=== PATIENT | female | born 1985 | race Caucasian/White ===

== ENCOUNTER 2019-09-06 12:37 | Outpatient (CLI) | payer BC, SELFPAY ==
--- NOTE | ~2019-09-06 | US_ITS ---
EXAMINATION: US OB follow up DATE: 09/06/2019 13:48 INDICATION: Evaluate growth and fluid TECHNIQUE: Real-time transabdominal obstetric ultrasound. FINDINGS: No prior studies for comparison. There is a single living fetus in vertex presentation. The placenta is anterior without placenta pre via. cardiac activity and movement is noted with a heart rate of 152 beats per minute. T he amniotic fluid volume is normal. LYNNETTE measures 9.2 cm. The following biometric data were obtained: BPD: 88mm corresponds to gestational age 35 weeks 3 days. Head circumference: 325mm corresponds to gestational age 36 weeks 6 days. Abdominal circumference: 330mm corresponds to gestational age 37 weeks 0 days. Femur length: 76mm corresponds to gestational age 38 weeks 6 days. Estimated weight: 3149grams +/- 472grams.] IMPRESSION: 1. Single living intrauterine in vertex presentation with an estimated gestational age of 37 weeks 0 days by current ultrasound. EDC is 09/27/2019. 2. Normal LYNNETTE measures 9.2 cm.. Reviewed, dictated and finalized at location A. IMPRESSION: 1. Single living intrauterine in vertex presentation with an estimat ed gestational age of 37 weeks 0 days by current ultrasound. EDC is 09/27/2019. 2. Normal LYNNETTE measures 9.2 cm..
== END 2019-09-06 12:38 | disposition home or self-care (01) ==
PROVIDERS: PCP Physician Assistant; Visit Provider Obstetrics & Gynecology
DX: Z34.91 Encounter for supervision of normal pregnancy, unspecified, first trimester (principal); Z3A.37 37 weeks gestation of pregnancy
CPT/HCPCS: 76816

== ENCOUNTER 2019-09-20 21:52 | Inpatient (IN) | payer BC, SELFPAY ==
[2019-09-20 22:10] VITALS: TEMP 36.6
[2019-09-20 22:20] VITALS: BP 117/80; PULSE 71
[2019-09-20 22:48] VITALS: BMI 26.2
--- NOTE | 2019-09-20 22:49 | LDADM ---
This patient, Pauline Clancy, was admitted to Labor/Delivery/Recovery 104 on 09/20/19 at 21:52. Plans for labor, pain management and were discussed with patient. Patient/family oriented to hospital policies and general routines including ID bracelet, bed and alarms, visiting hours, pain management, procedures, bathroom and other care routines, personal items, smoking policy, room service/diet and guest tray routines, infant security routines, and visiting hours. Patient/Family are encouraged to report perceived risks to care and to ask questions if they do not understand what they are told or what they should do. See OBIX for further documentation.
[2019-09-20 23:01] LABS: Basophils Percent Auto 0.2 % (0.2-1.2); Eosinophils Percent Auto 0.2 % (0-4.4); Hematocrit 38.4 % (37.0-47.0); Hemoglobin 13.2 g/dL (12.0-15.0); Immature Granulocyte Absolute 0.17 K/mm3 (0.00-0.031); Lymphocytes Absolute Auto 2.32 K/mm3 (0.9-3.2); Lymphocytes Percent Auto 13.7 % (18.3-44.2); Mean Corpuscular HGB Conc 34.4 g/dl (32-36); Mean Corpuscular Hemoglobin 34.2 pg (26-34); Mean Corpuscular Volume 99.5 fl (80-100); Mean Platelet Volume 10.4 fl (7.4-10.4); Monocytes Absolute Auto 0.9 K/mm3 (0.1-0.6); Monocytes Percent Auto 5.4 % (2.6-8.5); Neutrophils Absolute Auto 13.5 K/mm3 (1.3-6.7); Neutrophils Percent Auto 79.5 % (45.5-73.1); Platelet Count Result 165 k/mm3 (150-375); Red Blood Count 3.86 M/mm3 (4.2-5.4); Red Cell Distribution Width 12.9 % (11.5-14.5)
[2019-09-20 23:36] VITALS: BP 124/90; PULSE 113; TEMP 37.6
[2019-09-21] VITALS (125 sets, daily range): BP systolic 45–179; BP diastolic 12–163; PULSE 46–268; RESP 16–18; TEMP 36.9–37.4; O2SAT 91–100
[2019-09-21 00:05] LABS: HIV 1/2 Ab P24 Ag Result Negative (Negative)
[2019-09-21] MEDS: LACTATED RINGERS 1,000 ML 125 ML IV CONT ×4 (00:24→04:12)
--- NOTE | 2019-09-21 00:54 | WPDANESEPP ---
Anes - Eval Pre Procedure Procedure: LABOR EPIDURAL Date/Time: 09/21/19 00:54 Surgeon: claudia Preop Diagnosis: Abd pain with contractions Pre Op Diagnosis: Contractions/Leaking Patient Data Age: 34 Gender: F Height: 5 ft 7 in Weight: 76 kg Last Vital Signs Temp 99.6 F 09/20/19 23:36 Pulse 113 H 09/20/19 23:36 BP 124/90 09/20/19 23:36 Allergies Allergy/AdvReac Type Severity Reaction Status Date / Time No Known Allergies Allergy Verified 09/03/19 14:41 Home Medications Medication Instructions Recorded Confirmed Type PNV cmb#95-ferrous fumarate-FA 1 tablet PO DAILY 09/03/19 09/03/19 History [] acyclovir 400 mg PO DAILY 09/03/19 09/03/19 History cetirizine [Zyrtec] 10 mg PO DAILY 09/03/19 09/03/19 History Laboratory Tests 09/20/19 09/20/19 09/20/19 22:53 22:53 22:53 WBC 17.0 K/mm3 H K/mm3 (4.5-10.0) RBC 3.86 M/mm3 L M/mm3 (4.2-5.4) Hgb 13.2 g/dL g/dL (12.0-15.0) Hct 38.4 % % (37.0-47.0) MCV 99.5 fl fl (80-100) MCH 34.2 pg H pg (26-34) MCHC 34.4 g/dl g/dl (32-36) RDW 12.9 % % (11.5-14.5) Plt Count 165 k/mm3 k/mm3 (150-375) MPV 10.4 fl fl (7.4-10.4) Immature Gran % (Auto) 1.0 % H % (0-0.5) Neut % (Auto) 79.5 % H % (45.5-73.1) Lymph % (Auto) 13.7 % L % (18.3-44.2) Mcduffie % (Auto) 5.4 % % (2.6-8.5) Eos % (Auto) 0.2 % % (0-4.4) Baso % (Auto) 0.2 % % (0.2-1.2) Lymph # (Auto) 2.32 K/mm3 K/mm3 (0.9-3.2) [place]duffie # (Auto) 0.9 K/mm3 H K/mm3 (0.1-0.6) Eos # (Auto) 0.0 K/mm3 K/mm3 (0-0.3) Baso # (Auto) 0.0 K/mm3 K/mm3 (0.0-0.1) Abs Immat Gran (auto) 0.17 K/mm3 H K/mm3 (0.00-0.031) Absolute Neuts (auto) 13.5 K/mm3 H K/mm3 (1.3-6.7) Absolute Nucleated RBC 0.0 K/mm3 K/mm3 (0.0-0.012) Nucleated RBC % 0.0 % % (0.0-0.2) RPR Pending HIV 1&2 Ab/P24 Ag 4thGn Negative (Negative) Blood Type Antibody Screen 09/20/19 22:53 WBC RBC Hgb Hct MCV MCH MCHC RDW Plt Count MPV Immature Gran % (Auto) Neut % (Auto) Lymph % (Auto) Mcduffie % (Auto) Eos % (Auto) Baso % (Auto) Lymph # (Auto) Mcduffie # (Auto) Eos # (Auto) Baso # (Auto) Abs Immat Gran (auto) Absolute Neuts (auto) Absolute Nucleated RBC Nucleated RBC % RPR HIV 1&2 Ab/P24 Ag 4thGn Blood Type A Positive Antibody Screen Negative Patient hx anesthesia problems: none Family hx anesthesia problems: none [facility] Past Medical History Medical History and not yet delivered Family History Family History Father High cholesterol Social History Social History Smoking status: Never smoker Substance use: never Spiritual care concerns: No Exam Day of Procedure 09/21/19 00:54
[2019-09-21] MEDS: ONDANSETRON INJ 4 MG/2 ML VIAL IV PUSH (02:23)
[2019-09-21] MEDS: OXYTOCIN 30 UNITS/NS 500 ML 30 UNITS/500 ML BAG 999 UNITS IV CONT (05:53)
--- NOTE | 2019-09-21 06:05 | WPDHPUPDATE1 ---
History and Physical Update Update Date/Time: 09/21/19 06:05 History and Physical has been reviewed, including an updated exam of the patient. There are NO changes in the patient's condition. Risks, benefits, and alternatives have been discussed and questions answered. Patient agrees to proceed with procedure.
--- NOTE | 2019-09-21 06:05 | WPDOBADMIT ---
Obstetrics - Admit Note Admission Note: record reviewed. No pertinent additions to the history and/or any subsequent changes in the physical findings that are not consistent with the expected course of the were found. Additions to the history and/or subsequent changes in the physical findings follow. None.
--- NOTE | 2019-09-21 06:06 | PM.OBPRVD ---
OB - Delivery Note Procedure Delivery date: 09/21/19 Route of delivery: Laceration description: Perineal - 1st Degree Delivery repair: chromic Specimen: Yes (placenta) Estimated blood loss (mL): 200 Anesthesia type: Epidural Disposition: floor Narrative: Patient prepped and draped in usual manner for this procedure. Maternal expulsive efforts delivered vertex which was suctioned of naso and oropharynx. Further effort delivered the rest of the baby without difficulty. Cord was clamped cut baby was passed off the operative field and placenta delivered spontaneously. Cervix vagina and vulva inspected midline first-degree laceration was noted and repaired using 2 0 chromic in a running interlocking manner to approximate the vaginal tissue deep tissue and the subcuticular layer on the perineum. At this point seizure was considered terminated. Immediate postoperative condition mother baby were both excellent. [place] [facility] Weeks of gestation at delivery: 39 gender: Female Weight (pounds): 7 Weight (ounces): 13 score one minute: 9 score five minutes: 9
[2019-09-21] MEDS: OXYTOCIN 30 UNITS/NS 500 ML 30 UNITS/500 ML BAG 125 UNITS IV CONT (06:27)
[2019-09-21] MEDS: BENZOCAINE 20% AER SPR (*SP) 56 GM CAN 1 SPRAY TOPICAL (08:23)
[2019-09-21] MEDS: WITCH HAZEL 40 PADS 1 PAD TOPICAL (08:23)
--- NOTE | 2019-09-21 09:20 | PC.NURSE ---
Patient transferred to post room #282 via wheelchair from labor and delivery. Support person present. Oriented to unit, room, information board, rooming in, admission packet and security measures. Patient verbalizes understanding.
--- NOTE | 2019-09-21 09:50 | PC.NURSE ---
Mother called out for assist with feeding, reporting eagerly fed for first feeding. Reviewed infant feeding cues, frequencies, duration of feedings, feeding elimination flow sheet, and signs of adequate intake. Demonstrated stimulation techniques to wake for feeding. Mother is attempting latch with cradle. Assisted with to breast. Reviewed positioning/alignment in cross cradle, holding breast in U hold and guided asymmetrical latch on. Discussed rational for each. Infant was able to latch correctly within a few attempts. Infant nursed eagerly, with steady draws and frequent swallowing noted. Reviewed signs of a correct latch, effective nursing and suck swallow ratio. Infant was able to maintain latch without discomfort to mother. Nipple care reviewed. Suggested mother stimulate and continue to hold breast during feeding, to keep infant awake and nursing effectively for increased intake and maintaining deep latch. Demonstrated how to adjust latch more deeply while feeding. Instructed mother to call out for RN assistance if she is unable to latch for feeding or she has discomfort with nursing. Instructed feeding should be initiated three hours from start of last feeding or if feeding cues are noted before. Mother voiced understanding of information shared.
[2019-09-21 11:42] LABS: Rapid Plasma Reagin Non-Reactive (NonReactive)
[2019-09-21] MEDS: IBUPROFEN 600 MG TABLET PO ×2 (12:24→22:25)
[2019-09-21] MEDS: LORATADINE 10 MG TABLET PO (12:25)
[2019-09-21] MEDS: MULTIVIT/MIN/PREN/FOL AC/IRON TABLET 1 TAB PO (12:25)
[2019-09-21] MEDS: DOCUSATE SODIUM 100 MG CAPSULE PO (17:52)
[2019-09-22 05:20] LABS: Hematocrit 32.8 % (37.0-47.0)
[2019-09-22 07:45] VITALS: BP 93/58; PULSE 72; RESP 18; TEMP 36.8; O2SAT 99
--- NOTE | 2019-09-22 09:01 | WPDANLDPN2 ---
Anes-Prog Note L&D Date/Time: 09/22/19 09:01 Comfortable throughout: labor and delivery Neuraxial method: epidural Epidural/Spinal procedure site: clean & non-tender Neuro status: Neuro function grossly intact. Cardiovascular status: normal Respiratory status: normal Airway patency: baseline Mental status: baseline Post-Op hydration status: normal Vital Signs: Last Vital Signs Temp 37.1 C 09/21/19 21:14 Pulse 85 09/21/19 21:14 Resp 16 09/21/19 21:14 BP 100/67 09/21/19 21:14 Pulse Ox 98 09/21/19 21:14 I/O: Intake & Output 09/21/19 09/22/19 09/22/19 23:59 07:59 15:59 Intake Total 240 Balance 240 Post-procedural complaints: none Patient feedback: Patient satisfied with anesthetic care.
[2019-09-22] MEDS: DOCUSATE SODIUM 100 MG CAPSULE PO ×2 (09:51→16:10)
[2019-09-22] MEDS: MULTIVIT/MIN/PREN/FOL AC/IRON TABLET 1 TAB PO (09:51)
[2019-09-22] MEDS: IBUPROFEN 600 MG TABLET PO ×2 (09:51→16:10)
[2019-09-22] MEDS: LANOLIN (LANSINOH) 7.5 GM CREAM 1 APPLIC TOPICAL (09:56)
--- NOTE | 2019-09-22 12:05 | PC.NURSE ---
Mother is able to independently latch infant with appropriate positioning/alignment. She denies any nipple discomfort, is feeding as required and waking to feed if needed. has had at least 8 effective feedings in the past 24 hours, and is currently meeting outcomes for weight, output, jaundice and feeding frequencies. Mother states she feels confident to continue effective at home. Reviewed transition to breast milk, signs of adequate intake, and engorgement/relief. Instructed to call ICP if intake/output less than required. Reviewed regular medications mother is taking. Information provided per Renetta. Reviewed community resources on the [facility] website and in the Mom/Baby guide. Information on outpatient services provided. Mother has no further questions at this time.
--- NOTE | 2019-09-22 12:10 | PM.OBDSVD ---
OB - DS: Summary OB Procedures : None OB Procedures Intrapartum: Spontaneous Vag Delivery OB Procedures: : None Time Spent with Patient Time attestation: Total time spent providing and/or coordinating discharge services: DS: Data Data Completed and Pending Pending studies at discharge: Pending at discharge 09/20/19 05:53 Surgical [PTH] Routine Labs on day of discharge: Labs from last 24 hours 09/22/19 03:53 Hgb 11.0 L Hct 32.8 L Discharge Plan Discharge Discharging Clinician: Marcus Pittman Patient Disposition: Home, Self-Care Activity: as tolerated Diet: as tolerated Patient Instructions: Antibiotic Form Stand Alone Forms: General Discharge Information Follow-up/Referrals: Marcus Pittman MD [Physician] - 3 Weeks Discharge Medications: New hydrocodone-acetaminophen 5-325 mg Tablet 1 tab PO Q3H PRN (Reason: Moderate Pain (4-6)) Qty: 12 RF: 0 ibuprofen 600 mg Tablet 600 mg PO Q6H PRN (Reason: Cramping) Qty: 30 RF: 0 Continued cetirizine [Zyrtec] 10 mg Tablet 10 mg PO DAILY RF: 0 acyclovir 400 mg Tablet 400 mg PO DAILY RF: 0 PNV cmb#95-ferrous fumarate-FA [] 28 mg iron- 800 mcg Tablet 1 tablet PO DAILY RF: 0 Date of admission: 09/20/19 21:52 Primary Care Provider: Obed,Becky Admitting Provider: Marcus Pittman Attending physician on admission: Marcus Pittman
[2019-09-24 10:19] VITALS: BP 109/71; PULSE 87; RESP 22
== END 2019-09-22 17:10 | disposition home or self-care (01) | DRG 807 ==
LOC: ANHLDR 22:45 → ANHOB2 09-21 09:22
PROVIDERS: Admitting Provider Obstetrics & Gynecology; PCP Physician Assistant; Visit Provider Obstetrics & Gynecology
DX: O98.52 Other viral diseases complicating childbirth (principal); Z37.0 Single live birth; Z3A.39 39 weeks gestation of pregnancy; B00.9 Herpesviral infection, unspecified; O70.0 First degree perineal laceration during delivery; O36.8330 Maternal care for abnormalities of the fetal heart rate or rhythm, third trimester, not applicable or unspecified
CPT/HCPCS: 36415; 84112; 85014; 85018; 85025; 86592; 86703; 86850; 86900; 86901; 88307; A9270; G0432; J2405; J2590; J2795; J7120

== ENCOUNTER 2020-09-10 17:44 | Emergency (ER) | payer BC, SELFPAY ==
--- NOTE | ~2020-09-10 | CT_ITS ---
EXAMINATION: CT abdomen pelvis w con DATE: 09/10/2020 19:12 INDICATION: Right lower quadrant abdominal pain. Nausea and vomiting. TECHNIQUE: Computed tomography (CT) of the abdomen and pelvis was performed with 100 mL Omnipaque 350 intravenous contrast. Automated exposure control and iterative reconstruction technique were employe d. The dose-length product was 250.53 mGy-cm. COMPARISON: None. FINDINGS: The visualized portions of the lung bases demonstrate minimal atelectasis. No pleural effus ion. The heart size is normal. No pericardial effusion. There is a 6 mm cyst in the liver. The gallbl adder, spleen, pancreas, adrenal glands, and kidneys are normal. There is an intrauterine device in a bnormal position where one prong extends most of the way through the myometrium. There are no dilated loops of bowel. The visualized portion of the appendix is normal. There are no pathologically enlarg ed lymph nodes. There is no free intraperitoneal fluid. There are chronic bilateral L5 pars defects. There is 3 mm anterolisthesis of L5 on S1. There is thoracolumbar levoscoliosis. IMPRESSION: 1. Intrauterine device in abnormal position where one prong extends most of the way through the myome trium. Reviewed, dictated and finalized at location A. IMPRESSION: 1. Intrauterine device in abnormal position where one prong extends most of the way through the myometrium.
[2020-09-10 17:48] VITALS: BP 119/77; PULSE 119; RESP 20; TEMP 37.1; O2SAT 99
[2020-09-10 18:00] LABS: Hematocrit 42.5 % (37.0-47.0); Hemoglobin 14.1 g/dL (12.0-15.0); Mean Corpuscular HGB Conc 33.2 g/dl (32-36); Mean Corpuscular Hemoglobin 33.1 pg (26-34); Mean Corpuscular Volume 99.8 fl (80-100); Mean Platelet Volume 10.5 fl (7.4-10.4); Platelet Count Result 177 k/mm3 (150-375); Red Blood Count 4.26 M/mm3 (4.2-5.4); Red Cell Distribution Width 12.1 % (11.5-14.5); White Blood Count 18.4 K/mm3 (4.5-10.0)
[2020-09-10 18:10] LABS: Alanine Aminotransferase 16 U/L (4-35); Albumin Level 4.7 g/dL (3.5-5.1); Alkaline Phosphatase 43 U/L (38-126); Anion Gap 7 mmol/L (8-16); Aspartate Amino Transferase 29 U/L (14-36); Bilirubin,Total 1.2 mg/dL (0.2-1.3); Blood Urea Nitrogen 10 mg/dL (7-17); Calcium 10.2 mg/dL (8.4-10.2); Carbon Dioxide 25 mmol/L (22-30); Chloride 105 mmol/L (98-107); Estimated CRCL calculation 84 ml/min; Estimated Glomerular Filt Rate > 60; Glucose 115 mg/dL (65-105); Lipase 60 U/L (23-300); Potassium 3.5 mmol/L (3.4-5.0); Sodium 137 mmol/L (137-145)
[2020-09-10 18:24] LABS: Band Neutrophils Percent 5 % (0-6); Lymphocytes Absolute Manual 0.55 K/mm3 (1.1-4.5); Monocytes Absolute Manual 0.36 K/mm3 (0.1-0.90); Monocytes Percent Manual 2 % (3-9); Neutrophils Absolute Manual 17.48 K/mm3 (1.7-7.2); Neutrophils Percent Manual 90 % (46-73); Platelet Estimate Adequate (Adequate); Total Cells Counted 100
--- NOTE | 2020-09-10 18:36 | ED.ABDPAIN ---
HPI - Abdominal Pain General Chief Complaint: Abdominal Pain Stated Complaint: ABD Pain Time Seen by Provider: 09/10/20 18:21 Source: patient Mode of arrival: ambulatory Limitations: no limitations History of Present Illness HPI narrative: This is a 35-year-old female that presents the emergency department for abdominal pain since this morning. Reports it is in her mid abdomen. Associated with nausea. It has been constant since onset. Also reports a fever today. Denies vomiting, dysuria, or hematuria. Related Data Home Medications Medication Instructions Recorded Confirmed acyclovir 400 mg PO DAILY 09/03/19 09/03/19 cetirizine [Zyrtec] 10 mg PO DAILY 09/03/19 09/03/19 Allergies Allergy/AdvReac Type Severity Reaction Status Date / Time No Known Allergies Allergy Verified 09/10/20 17:50 Review of Systems Review of Systems: Narrative: CONSTITUTIONAL: Reports fever GASTROINTESTINAL: Reports abdominal pain, nausea. Denies vomiting GENITOURINARY: Denies dysuria or hematuria. All systems reviewed & are unremarkable except as noted in HPI and below PMFSH Past Medical History Medical History (Updated 09/10/20 @ 19:41 by Ryann Gomez PA-C) History of seasonal allergies Family History Family History Father High cholesterol Social History Social History Smoking status: Never smoker Substance use: never Spiritual care concerns: No Exam Narrative: Exam Narrative: GENERAL: Well-appearing, well-nourished, and in no acute distress. HEAD: Normocephalic, atraumatic. EYES: EOMI. CHEST: Clear to auscultation. No respiratory distress. No wheezes rales or rhonchi HEART: Regular rate and rhythm. No murmur heard. Normal peripheral pulses. ABDOMEN: Soft, nondistended, normal active bowel sounds. Tender to palpation in the right lower quadrant, without guarding. No CVA tenderness EXTREMITIES: Normal range of motion. No edema. SKIN: Warm, dry, no rash. NEURO: No focal deficits. Alert and oriented x3. PSYCH: Normal mood and affect Course Vital Signs Vital signs: Vital Signs Temperature 98.8 F 09/10/20 17:48 Pulse Rate 119 H 09/10/20 17:48 Respiratory Rate 20 09/10/20 17:48 Blood Pressure 119/77 09/10/20 17:48 Pulse Oximetry 99 09/10/20 17:48 Temperature 98.8 F 09/10/20 17:48 Pulse Rate 119 H 09/10/20 17:48 Respiratory Rate 20 09/10/20 17:48 Blood Pressure 119/77 09/10/20 17:48 Pulse Oximetry 99 09/10/20 17:48 MDM - Abdominal Pain MDM Narrative Medical decision making narrative: Patient presents to the emergency department for abdominal pain and nausea. She is afebrile and nontoxic-appearing. Tachycardic upon arrival, this normalized with IV fluid administration. CBC does show leukocytosis to 18.4. Metabolic panel and lipase without concerning findings. UA with 4-6 white blood cells and 1+ leuk esterase, also with squamous epithelial cells. Patient denies any urinary symptoms. Suspect this was a contaminated catch. Bedside test is negative. CT scan abdomen and pelvis shows intrauterine device in abnormal position where one prong extends most the way through the myometrium. Spoke with Dr. Pickering about patient work-up who reports patient should call in the morning for follow-up for removal of IUD. Patient denies any abnormal discharge, new sexual partners or concern for STDs. Patient is stable and felt appropriate for further outpatient evaluation. She was given warnings to return to the ER Lab Data Attestation: I reviewed the patient's lab results. Result diagrams: 09/10/20 17:53 09/10/20 17:53 Labs: Lab Results 09/10/20 09/10/20 09/10/20 Range/Units 17:53 17:53 18:41 WBC 18.4 H (4.5-10.0) K/mm3 RBC 4.26 (4.2-5.4) M/mm3 Hgb 14.1 D (12.0-15.0) g/dL Hct 42.5 (37.0-47.0) % MCV 99.8 (80-100)
[2020-09-10] MEDS: ONDANSETRON INJ 4 MG/2 ML VIAL IV PUSH (18:43)
[2020-09-10] MEDS: MORPHINE SULFATE (*CRX) 4 MG/ML INJ IV PUSH (18:43)
[2020-09-10] MEDS: SODIUM CHLORIDE 0.9% IV 1,000 ML 999 ML IV CONT (18:43)
[2020-09-10 18:51] LABS: Add Urine Microscopic? YES; Appearance Urine Cloudy (Clear); Bilirubin Urine Negative (Negative); Blood Urine Negative (Negative); Color Urine Yellow (Yellow); Glucose Urine UA Negative (Negative); Ketones Urine 1+ mg/dL (Negative); Leukocyte Esterase Ur 1+ LEU/UL (Negative); Mucus Urine Rare /lpf; Nitrate Urine Negative (Negative); Protein Urine 1+ mg/dL (Negative); Specific Grav Ur 1.029 (1.001-1.035); Squamous Epithelial Cell Urine Occasional /hpf (Few)
[2020-09-10 19:54] VITALS: BP 112/65; PULSE 79; RESP 14; O2SAT 99
== END 2020-09-10 19:48 | disposition home or self-care (01) ==
PROVIDERS: Physician Assistant; Emergency Provider Emergency Medicine; PCP Physician Assistant
DX: T83.32XA Displacement of intrauterine contraceptive device, initial encounter (principal)
CPT/HCPCS: 36415; 74177; 80053; 81001; 81025; 83690; 85025; 96361; 96365; 96375; 99284; J0131; J2270; J2405; J7030; Q9967

== ENCOUNTER 2020-09-12 14:45 | Emergency (ER) | payer BC, SELFPAY ==
--- NOTE | ~2020-09-12 | US_ITS ---
EXAMINATION: US pelvic complete w TV EXAM DATE: 09/12/2020 20:20 INDICATION: right adnexal pain , tenderness. TECHNIQUE: Pelvic transabdominal and transvaginal sonogram was performed. There are multiple graysca le and Doppler images available for interpretation. Correlation is made to CT abdomen pelvis 09/10/2020 , right upper quadrant sonogram 09/12/2020. FINDINGS: Uterus measures 6.8 x 4.5 x 7.8 cm, is retroverted and morphologically normal. Endometria l stripe measures 6 mm, within normal limits. There is no free pelvic fluid. Right adnexa: The ovary measures 3.5 x 2.3 x 2.4 cm and is morphologically normal. Ovarian vascular f low confirmed. Left adnexa: The ovary measures 4.5 x 1.8 x 1.6 cm and is morphologically normal. Ovarian vascular fl ow confirmed. IMPRESSION: 1. Unremarkable pelvic ultrasound exam. Reviewed, dictated and finalized at location A.
--- NOTE | ~2020-09-12 | CT_ITS ---
EXAMINATION: CT abdomen pelvis w con EXAM DATE: 09/12/2020 21:34 INDICATION: Right lower quadrant pain. TECHNIQUE: Spiral CT of the abdomen and pelvis was performed following intravenous injection of 100 m L Omnipaque 350. Axial, coronal and sagittal images of the abdomen and pelvis were reviewed. The do se-length product (DLP) for this examination was 230.32 mGy-cm. The exposure was tailored according to patient size (auto mA exposure control), and iterative reconstruction (ASIR) was used as additiona l dose reduction technique. Comparison is made to prior examination from 09/10/2020. FINDINGS: The liver, spleen, adrenal glands and pancreas are unremarkable. Gallbladder is unremarkab le. No biliary obstruction. Portal and splenic veins are patent. Kidneys enhance symmetrically. T here is no hydronephrosis. The uterus is retroverted and morphologically normal. The bladder is u nremarkable. There is no retroperitoneal or pelvic lymphadenopathy. Mild nonspecific hazy omental a nd mesenteric fat, but with the mesenteric vasculature enhances normally. There is moderate amount of colonic gas. Probable identification of an unremarkable appendix. The sto mach and small bowel are unremarkable. No free intraperitoneal gas. The heart is normal in size. There are no pericardial or pleural effusions. Bibasilar subsegmental atelectasis. Mild thoracolum bar levoscoliosis. IMPRESSION: 1. Interval increase in amount of colonic gas to the rectum. No obstruction. 2. Mild nonspecific intra-abdominal fat stranding. 3. Interval removal of IUD. 4. Probable identification normal appendix. Reviewed, dictated and finalized at location A.
--- NOTE | ~2020-09-12 | US_ITS ---
EXAMINATION: US right upper quadrant EXAM DATE: 09/12/2020 17:03 INDICATION: Right upper quadrant abdominal pain. TECHNIQUE: Multiple grayscale and Doppler images of the abdomen right upper quadrant were obtained (b y a technologist who performed the scan) and subsequently reviewed. Correlation is made to CT abdomen pelvis 09/10/2020. FINDINGS: The pancreatic head and body are normal in appearance. The pancreatic tail is not visualized. The l iver has normal echogenicity and contour. There are no focal liver lesions identified. There is no evidence of intrahepatic biliary duct dilation. Portal venous flow was seen in the hepatopedal, nor mal direction and has normal Doppler waveform. No right-sided hydronephrosis. Common bile duct measures 3-4 mm, which is normal. The gallbladder wall is normal in thickness, with expected amount of distention. No sonographic evidence of pericholecystic fluid. There is no cholel ithiases. Technologist performing exam reports patient did not demonstrate sonographic Garcia's sign. Please note that this sign is less reliable in patients who have received pain medication. IMPRESSION: 1. Unremarkable abdominal ultrasound exam. Reviewed, dictated and finalized at location A.
[2020-09-12 15:23] VITALS: BP 122/78; PULSE 106; RESP 18; TEMP 36.9; O2SAT 99
[2020-09-12 15:37] LABS: Basophils Percent Auto 0.2 % (0.2-1.2); Eosinophils Absolute Auto 0.1 K/mm3 (0-0.3); Eosinophils Percent Auto 0.4 % (0-4.4); Hematocrit 38.6 % (37.0-47.0); Hemoglobin 12.6 g/dL (12.0-15.0); Immature Granulocyte Absolute 0.04 K/mm3 (0.00-0.031); Immature Granulocyte Percent A 0.4 % (0-0.5); Lymphocytes Absolute Auto 1.33 K/mm3 (0.9-3.2); Lymphocytes Percent Auto 11.9 % (18.3-44.2); Mean Corpuscular HGB Conc 32.6 g/dl (32-36); Mean Platelet Volume 9.7 fl (7.4-10.4); Monocytes Absolute Auto 0.6 K/mm3 (0.1-0.6); Monocytes Percent Auto 5.7 % (2.6-8.5); Neutrophils Absolute Auto 9.1 K/mm3 (1.3-6.7); Neutrophils Percent Auto 81.4 % (45.5-73.1); Platelet Count Result 168 k/mm3 (150-375); Red Blood Count 3.82 M/mm3 (4.2-5.4); Red Cell Distribution Width 12.3 % (11.5-14.5); White Blood Count 11.2 K/mm3 (4.5-10.0)
[2020-09-12 15:48] LABS: Add Urine Microscopic? YES; Appearance Urine Clear (Clear); Bacteria Urine 2+ /hpf; Bilirubin Urine Negative (Negative); Blood Urine 1+ (Negative); Color Urine Yellow (Yellow); Glucose Urine UA Negative (Negative); Ketones Urine Trace mg/dL (Negative); Leukocyte Esterase Ur 1+ LEU/UL (Negative); Nitrate Urine Negative (Negative); Protein Urine Negative (Negative); RBC Urine 0-2 /hpf (0-2); Squamous Epithelial Cell Urine Occasional /hpf (Few); Urobilinogen Urine Negative mg/dL (<2.0)
[2020-09-12 15:49] LABS: Alanine Aminotransferase 23 U/L (4-35); Albumin Level 4.2 g/dL (3.5-5.1); Alkaline Phosphatase 49 U/L (38-126); Anion Gap 5 mmol/L (8-16); Aspartate Amino Transferase 28 U/L (14-36); Bilirubin,Total 0.6 mg/dL (0.2-1.3); Blood Urea Nitrogen 8 mg/dL (7-17); Calcium 9.6 mg/dL (8.4-10.2); Carbon Dioxide 27 mmol/L (22-30); Chloride 106 mmol/L (98-107); Estimated CRCL calculation 95 ml/min; Estimated Glomerular Filt Rate > 60; Glucose 92 mg/dL (65-105); Lipase 30 U/L (23-300); Sodium 138 mmol/L (137-145)
[2020-09-12 15:50] LABS: Specific Grav Ur 1.004 (1.001-1.035)
[2020-09-12] MEDS: MORPHINE SULFATE (*CRX) 4 MG/ML INJ IV PUSH ×2 (16:47→21:10)
--- NOTE | 2020-09-12 16:52 | ED.GENADULT ---
HPI - General Adult General Chief complaint: Abdominal Pain <Gordon Baca MD - Last Filed: 09/13/20 12:12> Stated complaint: abd pain <Gordon Baca MD - Last Filed: 09/13/20 12:12> Time Seen by Provider: 09/12/20 16:19 <Gordon Baca MD - Last Filed: 09/13/20 12:12> History of Present Illness HPI narrative: Patient is a 35-year-old female who presents ER with upper abdominal pain. Ongoing for 3 days. Sharp and nonradiating. Had an outpatient ultrasound performed today but does not know the results. Was performed at [facility]. She reports that she was seen in this ER on 09/10. At that time she is found to have a migrating IUD after having a CT scan of her abdomen. The CT scan was then otherwise unremarkable. Pain is worse with eating. No fevers or chills or sweats. Denies chest pain or chest pressure. No urinary symptoms. She was seen by her spread cutter yesterday who removed her IUD. This did not change her pain. Additionally patient continues to have nausea and vomiting. <Gordon Baca MD - Last Filed: 09/13/20 12:12> Related Data Home medications: Home Medications Medication Instructions Recorded Confirmed acyclovir 400 mg PO DAILY 09/03/19 09/03/19 cetirizine [Zyrtec] 10 mg PO DAILY 09/03/19 09/03/19 oxycodone-acetaminophen [Percocet] 1 tablet PO Q4H PRN 09/12/20 09/12/20 <Gordon Baca MD - Last Filed: 09/13/20 12:12> Allergies/adverse reactions: Allergies Allergy/AdvReac Type Severity Reaction Status Date / Time No Known Allergies Allergy Verified 09/12/20 16:15 <Gordon Baca MD - Last Filed: 09/13/20 12:12> Review of Systems Review of Systems: All systems reviewed & are unremarkable except as noted in HPI and below <Gordon Baca MD - Last Filed: 09/13/20 12:12> Constitutional: Constitutional: Denies chills, Denies fever(s) and Denies weakness <Gordon Baca MD - Last Filed: 09/13/20 12:12> Cardiovascular: Cardiovascular: Denies chest pain and Denies radiating jaw, neck or arm pain <Gordon Baca MD - Last Filed: 09/13/20 12:12> Gastrointestinal: Gastrointestinal: Reports abdominal pain, Reports nausea and Reports vomiting <Gordon Baca MD - Last Filed: 09/13/20 12:12> Genitourinary: Genitourinary: Denies abnormal vaginal bleeding, Denies nocturia, Denies dysuria and Denies vaginal discharge <Gordon Baca MD - Last Filed: 09/13/20 12:12> PMFSH Past Medical History Medical History: Medical History (Updated 09/13/20 @ 00:00 by Ranjith Goodman) History of seasonal allergies <Gordon Baca MD - Last Filed: 09/13/20 12:12> Family History Family History: Family History Father High cholesterol <Gordon Baca MD - Last Filed: 09/13/20 12:12> Social History Social History: Social History Smoking status: Never smoker Substance use: never Gender identity (if verbalized by the patient): Female Spiritual care concerns: No <Gordon Baca MD - Last Filed: 09/13/20 12:12> Exam Narrative: Exam Narrative: GENERAL: Uncomfortable-appearing, well-nourished, and in no acute distress. HEAD: Normocephalic, atraumatic. CHEST: Clear to auscultation. No respiratory distress. HEART: Regular rate and rhythm. Normal peripheral pulses. ABDOMEN: Soft, diffuse discomfort but with sharp pain right upper quadrant and right lower quadrant with guarding, nondistended, normal active bowel sounds. EXTREMITIES: Normal range of motion. No edema. SKIN: Warm, dry, no rash. NEURO: Alert and oriented x3. PSYCH: Normal mood and affect. <Gordon Baca MD - Last Filed: 09/13/20 12:12> Course Reevaluation(s) Reevaluation #1: I discussed the case with Dr. Pittman he does not feel the patient's pelvic pain is related to the IUD which she removed. There
[2020-09-12] MEDS: DICYCLOMINE HCL INJ 20 MG/2 ML VIAL IM (18:23)
[2020-09-12 18:53] VITALS: BP 107/78; PULSE 101; RESP 16; TEMP 36.8; O2SAT 100
[2020-09-12 22:29] VITALS: BP 118/71; PULSE 78; RESP 20; TEMP 36.8; O2SAT 98
[2020-09-12] MEDS: HYDROcodone/acetaminophen (*CRX) 5-325 MG TABLET 1 TAB PO (22:29)
== END 2020-09-12 22:30 | disposition home or self-care (01) ==
PROVIDERS: Emergency Medicine; Emergency Provider Emergency Medicine; PCP Physician Assistant
DX: N39.0 Urinary tract infection, site not specified (principal); R10.84 Generalized abdominal pain
CPT/HCPCS: 36415; 74177; 76705; 76830; 76856; 80053; 81001; 81025; 83690; 85025; 87086; 87088; 96372; 96374; 96376; 99284; A9270; J0500; J2270; Q9967

== ENCOUNTER 2020-10-06 08:04 | Outpatient (CLI) | payer BC, SELFPAY ==
--- NOTE | ~2020-10-06 | NM_ITS ---
EXAMINATION: NM hepatobiliary wo pharm DATE: 10/06/2020 10:32 INDICATION: Upper abdominal pain. COMPARISON: None. TECHNIQUE: 5.4 mCi Tc-99m mebrofenin (Choletec) was administered intravenously. Scintigraphic images of the abdomen were obtained for one hour. At the 1 hour time point, the patient drank 8 oz Ensure, and imaging was continued for 60 minutes. Gallbladder ejection fraction was calculated by the technol ogist. FINDINGS: There is normal clearance of radiotracer from the blood pool. There is homogeneous tracer u ptake by the liver. Activity progresses to the bowel and gallbladder. The gallbladder ejection fract ion (GBEF) is 66%. Note that with this technique, normal GBEF >= 33%. IMPRESSION: 1. Normal hepatobiliary scan. Reviewed, dictated and finalized at location A.
== END 2020-10-06 08:05 | disposition home or self-care (01) ==
PROVIDERS: PCP Physician Assistant; Visit Provider Physician Assistant
DX: R10.10 Upper abdominal pain, unspecified (principal)
CPT/HCPCS: 78226; A9537